=== PATIENT | female | born 1965 | race Caucasian/White ===

== ENCOUNTER 2023-09-13 15:52 | Outpatient (CLI) | payer BC | END 2023-09-13 15:53 | disposition home or self-care (01) | LOC: CSHRAD 15:52 | PROVIDERS: ATTEND Internal Medicine Rheumatology | DX: M46.1 Sacroiliitis, not elsewhere classified (principal) | CPT/HCPCS: 72202 ==

== ENCOUNTER 2023-09-27 22:14 | Inpatient (IN) | payer BC ==
[2023-09-28 02:01] VITALS: BMI 31.2
[2023-10-02 11:45] VITALS: BP 131/82; TEMP 98.9
== END 2023-10-02 13:50 | disposition home or self-care (01) | DRG 872 ==
LOC: CSHERS 22:14 → CSHTELE 09-28 01:05
PROVIDERS: ADMIT Student in an Organized Health Care Education/Training Program; ATTEND Internal Medicine
DX: A41.9 Sepsis, unspecified organism (principal); A09 Infectious gastroenteritis and colitis, unspecified; N17.9 Acute kidney failure, unspecified; D84.9 Immunodeficiency, unspecified; E87.6 Hypokalemia; E83.42 Hypomagnesemia; D69.6 Thrombocytopenia, unspecified; E78.5 Hyperlipidemia, unspecified; Z79.899 Other long term (current) drug therapy; Z79.4 Long term (current) use of insulin; E86.0 Dehydration; N18.9 Chronic kidney disease, unspecified; I12.9 Hypertensive chronic kidney disease with stage 1 through stage 4 chronic kidney disease, or unspecified chronic kidney disease; E11.22 Type 2 diabetes mellitus with diabetic chronic kidney disease
CPT/HCPCS: 0241U; 36415; 36416; 71045; 76770; 80048; 80053; 81001; 82010; 82550; 83605; 83630; 83735; 84132; 84145; 84443; 85025; 87040; 87177; 87324; 87328; 87329; 87449; 87505; 87507; 93005; 96360; 96361; J0696; J1650; J1815; J3475; J3480; J3490; J7050; J7120